=== PATIENT | male | born 1945 | race Caucasian/White ===

== ENCOUNTER 2020-06-03 12:13 | Inpatient (IN) | payer OTHER, MEDICARE, SELFPAY ==
[~2020-06-03] VITALS: Ht 188 cm; Wt 131.5 kg
[~2020-06-03 12:13] MED LIST: ACET325T53 PO; CHOL50004 PO; FURO-149 PO; HYDR-1189 PO; HYT1 GT; LOSA100T3 PO; METO-442 PO; METO2.5T6 PO; NITR1PAT76 TD; OMEP20CA15 PO; SSREG SUBCUT; ZOLP5TAB2 PO
[2020-06-03 12:15] VITALS: BP_SYST 130
--- NOTE | 2020-06-03 12:22 | NUR ---
Patient to ER bed 6 to gown for evaluation. Side rails up. Report given to Flakito MARIE.
--- NOTE | 2020-06-03 12:22 | NUR ---
LESLIE TO ASSUME CARE, PT CALM, ALERT, NO DISTRESS. COMMUNICATES CLEARLY IN FULL COMPLETE SENTENCES
--- NOTE | 2020-06-03 12:40 | NUR ---
DR HERNANDEZ IN TO ASSESS
[2020-06-03 12:47] LABS: BASOPHILS # (AUTO) 0.1 K/uL (0.0-0.2); BASOPHILS % (AUTO) 1.1 % (0.0-2.0); EOSINOPHILS # (AUTO) 0.1 K/uL (0.0-0.4); EOSINOPHILS % (AUTO) 2.9 % (0.0-4.0); HEMOGLOBIN 9.4 g/dL (14.0-18.0); MEAN CORPUSCULAR HEMOGLOBIN 35 pg (27-31); MEAN CORPUSCULAR HGB CONC 34 % (32-36); MEAN CORPUSCULAR VOLUME 106 fL (79.0-98.0); MONOCYTES # (AUTO) 0.4 K/uL (0.0-1.0); MONOCYTES % (AUTO) 8.8 % (1.7-9.3); NEUTROPHILS # (AUTO) 3.2 K/uL (1.8-7.7); NEUTROPHILS % (AUTO) 67.2 % (40.0-70.0); PLATELET COUNT (AUTO) 95 K/uL (130-430); RED BLOOD CELL COUNT(AUTO) 2.64 MIL/uL (4.2-6.2); RED CELL DISTRIBUTION WIDTH 15.2 % (9.0-15.0); WHITE BLOOD COUNT (AUTO) 4.7 K/uL (4.8-10.8)
[2020-06-03 12:59] LABS: ANION GAP 8 (5-15); CHLORIDE 97 mmol/L (98-107); CREATININE 4.49 mg/dL (0.55-1.30); GLUCOSE 113 mg/dL (70-99); SODIUM SERUM 138 mmol/L (136-145); UREA NITROGEN, BLOOD 18 mg/dL (8-21)
--- NOTE | 2020-06-03 13:00 | NUR ---
LABS, CXR COMPLETED, NO DISTRESS, RESP UNLABORED, IV HL 18 [address] AC
[2020-06-03 13:06] LABS: ALANINE AMINOTRANSFERASE 21 U/L (12-78); ALBUMIN 3.4 g/dL (3.4-4.8); ASPARTATE AMINOTRANSFERASE 20 U/L (10-37)
--- NOTE | 2020-06-03 13:25 | NUR ---
WOUND CARE TO RT TOE, IRRIGATED AND DRSG APPLIED
--- NOTE | 2020-06-03 14:05 | NUR ---
MRSA and Covid swabs collected
--- NOTE | 2020-06-03 14:25 | NUR ---
SUTURE REPAIR BY DR HERNANDEZ
[2020-06-03] MEDS ORDERED: LIDOCAINE 1%, 20 ML MDV 20 ML ONE (14:34)
[2020-06-03] MEDS ORDERED: DIPH-TET-PERTUS Vaccine 0.5 ML VIAL (ADACEL) I.M. ONE ×2 (14:45→14:47)
[2020-06-03] MEDS ORDERED: BACITRACIN 1 GM OINT TP ONE (14:46)
--- NOTE | 2020-06-03 14:55 | NUR ---
Patient will be admitted to care of Dr. Hernandez. Admitted to tele unit tele. Will go to room 130. Belongings list completed. Complete and up to date summary report printed. SBAR report to be given at bedside with opportunity for questions. Bedside report to be given
[2020-06-03] MEDS ORDERED: APIX2.5T PO (14:57)
--- NOTE | 2020-06-03 15:18 | NUR ---
ADMISSION NOTE Received patient from ER via ca, received report from HORACE MARIE. Patient admitted with diagnosis of FREQUENT SYNCOPAL EPISODE. Patient oriented to hospital routine, call light, toileting and safety-patient verbalized understanding.
[2020-06-03 15:19] VITALS: BP_SYST 117
[2020-06-03] MEDS ORDERED: INSULIN REGULAR, HUMAN 100 UNITS/ML, 10 ML VIAL (humuLIN R) SUBCUT PRN (16:45)
--- NOTE | 2020-06-03 17:33 | NUR ---
P.T. NOTES P.T. EVAL COMPLETED; REFER TO EVAL FOR DETAILS; BP=67/35 (SUPINE), 82/56 (SITTING), 82/49 (STANDING); RU=320, O2 SAT ROOM AIR=96%
--- NOTE | 2020-06-03 19:15 | NUR ---
OPENING NOTE BEDSIDE REPORT RECEIVED FROM DAYSHIFT NURSE. PATIENT RECEIVED LYING IN BED, ASLEEP, NO S/S OF ACUTE DISTRESS NOTED. BREATHING IS EVEN AND UNLABORED. CALL LIGHT WITH PATIENT. BED ALARM ON. BED IS LOCKED AND AT LOWEST POSITION. WILL CONTINUE TO MONITOR.
[2020-06-03 20:00] VITALS: BP_SYST 100
--- NOTE | 2020-06-03 20:00 | NUR ---
CONSENT FOR INFORMATION/HIPPA PATIENT VERBALIZED THAT IT IS OK TO SHARE HIS INFORMATION TO HIS EX- SANAM RICHTER AND HIS SON SAUL CLIFTON.
[2020-06-03] MEDS: ACETAMINOPHEN 325 MG TABLET PO PRN (20:22)
[2020-06-03] MEDS: APIXABAN 2.5 MG TABLET PO SCH (20:22)
--- NOTE | 2020-06-03 21:00 | NUR ---
ROUNDS PATIENT IN BED, ASLEEP AT THIS TIME. NO SIGNS OF DISCOMFORT. CHEST RISE AND FALL EVEN BILATERALLY. CALL LIGHT WITH PATIENT. BED ALARM ON. WILL CONTINUE TO MONITOR.
--- NOTE | 2020-06-03 23:00 | NUR ---
ROUNDS/REPOSITIONED PATIENT AWAKE, WATCHING TV, NO S/S OF ACUTE DISTRESS NOTED. BREATHING EVEN AND UNLABORED. REPOSITIONED AT THIS TIME, PATIENT VERBALIZED THAT HES COMFORTABLE. ALL NEEDS MET. CALL LIGHT WITH PATIENT. BED ALARM ON. WILL CONTINUE TO MONITOR.
[2020-06-04] VITALS: BP_SYST 112
--- NOTE | 2020-06-04 01:00 | NUR ---
ROUNDS PATIENT IN BED, SLEEPING, NO SIGNS OF DISCOMFORT. CHEST RISE AND FALL EVEN BILATERALLY. BED ALARM ON. WILL CONTINUE TO MONITOR.
--- NOTE | 2020-06-04 02:47 | NUR ---
SIT UP/LAY DOWN/REPOSITION PATIENT WOKE UP WANTED TO SIT UP FOR A BIT AT SIDE OF BED, CALL LIGHT WITH PATIENT. PATIENT CALLED WHEN HE WAS READY TO LAY DOWN, ASSISTED BY RN. ALL NEEDS MET AT THIS TIME. CALL LIGHT WITH PATIENT. BED ALARM ON. WILL CONTINUE TO MONITOR.
--- NOTE | 2020-06-04 05:00 | NUR ---
ROUNDS PATIENT IN BED, SLEEPING COMFORTABLY. NO SIGNS OF DISCOMFORT. CHEST RISE AND FALL EVEN BILATERALLY. CALL LIGHT WITH PATIENT. BED ALARM ON. WILL CONTINUE TO MONITOR.
--- NOTE | 2020-06-04 06:14 | NUR ---
CLOSING NOTE PATIENT IN BED, AWAKE, AOX4, NO S/S OF ACUTE DISTRESS NOTED. BREATHING EVEN AND UNLABORED. HOB RAISED. PATIENT DENIES PAIN OR SOB. SKIN WARM AND DRY TO TOUCH, NO S/S OF HYPOGLYCEMIA NOTE. IV SITE PATENT, NO SIGNS OF INFILTRATION OR INFECTION NOTED. ALL NEEDS MET THROUGHOUT SHIFT. FALL AND SAFETY PRECAUTIONS MAINTAINED THROUGHOUT SHIFT. WILL CONTINUE TO MONITOR UNTIL PATIENT CARE IS ENDORSED TO ONCOMING DAYSHIFT NURSE.
[2020-06-04] MEDS: APIXABAN 2.5 MG TABLET PO SCH ×2 (08:29→20:49)
[2020-06-04 08:30] VITALS: BP_SYST 92
--- NOTE | 2020-06-04 08:30 | NUR ---
opening notes, received pt in bed, pt is aaox4, denies pain, no sob, no fever, vitals checked bp is a little bit low on the lower 90's, pt stated he is always dizzy when asked if he has any dizziness. pt given am meds. encouraged pt to call for assist and any concerns. call light in reach. bed in low position. will cont to monitor.
[2020-06-04] MEDS: ACETAMINOPHEN 325 MG TABLET PO PRN ×2 (09:56→20:48)
--- NOTE | 2020-06-04 09:59 | NUR ---
Nutrition Update Zhen Scale 18 noted. Pt admitted for syncopal episode, frequent. Diet: [facility] BMI: 37.2 kg/m2 RD to follow per nutrition care standards.
[2020-06-04 11:29] VITALS: BP_SYST 107
--- NOTE | 2020-06-04 13:47 | NUR ---
Case mgt--Met w/pt at bedside--pt very [place]-Pt says he lives alone in 2 story home but has hospital bed at home downstairs due to recent falls. Has FWW & W/C. Sons live nearby. He said he was at [facility] several years ago after his back surgery. I explained there is PT eval order, and we will f/u for dc planning for home vs SNF vs Acute Rehab.Pt feeds/dresses himself-limited ambulation--Will need f/u for dc planning
[2020-06-04 16:00] VITALS: BP_SYST 94
[2020-06-04] MEDS ORDERED: LIDOCAINE VISCOUS 2%, 15 ML UDC MM PRN (17:45)
--- NOTE | 2020-06-04 19:30 | NUR ---
INITIAL NOTE: Received report from dayshift RN. Patient is in bed, watching TV. No signs of acute distress. Even, nonlabored breathing on room air. IV site is patent, intact, and saline locked. Bed is locked at lowest position. Side rails up. Call light is with patient. Safety and fall precautions in place. Will continue with plan of care.
[2020-06-04 20:00] VITALS: BP_SYST 106
--- NOTE | 2020-06-04 20:48 | NUR ---
PAIN: Patient complained of mild pain in the fingers. Tylenol 650mg PO indicated. Educated patient on indications and side effect of medication. Patient verbalized understanding. Medication administered per MD order. Patient tolerated well. Will continue to monitor and reassess.
--- NOTE | 2020-06-04 22:00 | NUR ---
Rounds: Patient in bed, resting. No acute distress. Breathing is even, nonlabored on room air. Call light is with patient. Safety and fall precautions in place. Will continue to monitor.
[2020-06-05] VITALS: BP_SYST 95
--- NOTE | 2020-06-05 00:10 | NUR ---
Rounds: Patient in bed, resting. No s/s acute distress. Respirations are even, nonlabored on room air. Call light is with patient. Safety and fall precautions in place. Will continue to monitor.
--- NOTE | 2020-06-05 02:30 | NUR ---
Rounds: Patient is sleeping in bed. No acute distress. Even, nonlabored respirations on room air. Call light is with patient. Safety and fall precaution. Will continue monitoring.
--- NOTE | 2020-06-05 04:30 | NUR ---
Round: Patient is sleeping in bed. No s/s of acute distress. Even and unlabored respirations. Call light is with patient. Safety and fall precautions in place. Will continue to monitor.
--- NOTE | 2020-06-05 06:14 | NUR ---
CLOSING NOTE: Patient is sitting in chair by bedside. No signs of acute distress. Even, nonlabored breathing on room air. IV site is patent, intact, and saline locked. Bed is locked at lowest position. Side rails up x2. Call light is with patient. Safety and fall precautions in place. Will endorse care to dayshift RN. Addendum: 06/05/20 at 0618 by Estrellita Fofana RN All needs met.
[2020-06-05] MEDS: ACETAMINOPHEN 325 MG TABLET PO PRN (06:35)
--- NOTE | 2020-06-05 07:20 | NUR ---
Report received from FRANK Haro for continuation of care.
[2020-06-05 08:00] VITALS: BP_SYST 108
[2020-06-05] MEDS: APIXABAN 2.5 MG TABLET PO SCH (08:04)
--- NOTE | 2020-06-05 10:07 | NUR ---
Patient is resting in bedside chair and resting comfortably.
[2020-06-05 11:35] VITALS: BP_SYST 118
--- NOTE | 2020-06-05 12:07 | NUR ---
Patient is sitting in bedside chair eating lunch. He is very happy with his meal.
[2020-06-05 13:52] VITALS: BP_SYST 114
--- NOTE | 2020-06-05 14:32 | NUR ---
CM Note: Dr Hernandez discharged pt today, ordered to f/u with HH. I called pt's son Higinio # [phone] to inform HH arrangement with [facility] for continued PT and safety evaluation. [facility] will call for visiting appointment. >> The pt lives alone in his own home, Higinio lives 2 minutes away and will be staying with the pt until his step mother, Faiza arrives. Higinio assured that there will be someone with the pt at all time since the pt is high risk for fall. Faiza is currently from the pt. but still involves in pt care. Per Higinio, there will be a family meeting to determine the transfer of care from Faiza and possibly to him and will get the POA signed for further use. CM will f/u HH set up in am.
--- NOTE | 2020-06-06 08:55 | NUR ---
[facility]: Ren confirmed accepting the referral and will call pt today to schedule the nurse visiting services.
--- NOTE | 2020-06-09 13:54 | NUR ---
Discharge Follow Up Phone Call Kitchen Steward/Stewardess phoned patient, , on 06/07/20 and 06/09/20 but the message stated that the patient was unavailable. I phoned patient's son, Higinio [phone], today. Patient is doing better. [facility] had been set up for patient, but had not made contact. Aruna at [facility] recommended [facility]. [facility] later stated that a nurse would call today to set up an appointment to see patient tomorrow, 06/10/20. However, due to [facility]'s delay in service, Higinio has decided to go with [facility] who will see patient tomorrow, 06/10/20. Discussed with Higinio that patient needs to make a follow up appointment with his PCP. Higinio will check and assure the appointment is made. No other questions or concerns. Higinio will call if any follow up needed.
== END 2020-06-05 14:25 | disposition home health service (06) | DRG 312 ==
LOC: SED 12:13 → STU 14:27
PROVIDERS: ADMIT Family Medicine; ATTEND Family Medicine
DX: R55 Syncope and collapse (principal); N18.6 End stage renal disease; I12.0 Hypertensive chronic kidney disease with stage 5 chronic kidney disease or end stage renal disease; D64.9 Anemia, unspecified; E11.22 Type 2 diabetes mellitus with diabetic chronic kidney disease; M19.90 Unspecified osteoarthritis, unspecified site; N40.0 Benign prostatic hyperplasia without lower urinary tract symptoms; Z20.828 Contact with and (suspected) exposure to other viral communicable diseases; R29.6 Repeated falls; S91.119A Laceration without foreign body of unspecified toe without damage to nail, initial encounter; X58.XXXA Exposure to other specified factors, initial encounter; Y93.89 Activity, other specified; Y92.89 Other specified places as the place of occurrence of the external cause; Z79.899 Other long term (current) drug therapy; Y99.8 Other external cause status
CPT/HCPCS: 36415; 71045; 80053; 82550-TC; 82962; 83880; 84484; 85025; 87081; 90715; 93005; 97112-GP; 99285; G0378; J1815; J2001

== ENCOUNTER 2020-09-19 18:08 | Emergency (ER) | payer OTHER, MEDICARE, SELFPAY ==
[~2020-09-19] VITALS: Ht 188 cm; Wt 121.6 kg
[~2020-09-19 18:08] MED LIST changes: +APIX2.5T PO
[2020-09-19 18:28] VITALS: BP_SYST 111
[2020-09-19] MEDS ORDERED: BACITRACIN 1 GM OINT TP ONE (19:30)
[2020-09-19] MEDS ORDERED: LIDOCAINE/EPI 1% 1:100000 20 ML VIAL INJ ONE (19:30)
[2020-09-19 20:32] VITALS: BP_SYST 102
== END 2020-09-19 20:32 | disposition home or self-care (01) ==
LOC: SED 18:08
DX: S81.811A Laceration without foreign body, right lower leg, initial encounter (principal); I48.91 Unspecified atrial fibrillation; I12.9 Hypertensive chronic kidney disease with stage 1 through stage 4 chronic kidney disease, or unspecified chronic kidney disease; E11.22 Type 2 diabetes mellitus with diabetic chronic kidney disease; N18.9 Chronic kidney disease, unspecified; Z99.2 Dependence on renal dialysis; Z79.899 Other long term (current) drug therapy; W45.8XXA Other foreign body or object entering through skin, initial encounter; Y93.89 Activity, other specified; Y92.89 Other specified places as the place of occurrence of the external cause; Y99.8 Other external cause status
CPT/HCPCS: 99282

== ENCOUNTER 2020-09-24 16:31 | Emergency (ER) | payer OTHER, MEDICARE ==
[~2020-09-24] VITALS: Ht 185.4 cm; Wt 129.3 kg
[2020-09-24 16:45] VITALS: BP_SYST 107
[2020-09-24] MEDS ORDERED: ceFAZolin SODIUM 1 GM VIAL IM ONE (16:45)
[2020-09-24] MEDS ORDERED: LIDOCAINE 1%, 20 ML MDV 20 ML ONE (16:50)
[2020-09-24] MEDS ORDERED: CEPH-568 PO (17:13)
[2020-09-24 17:41] VITALS: BP_SYST 108
== END 2020-09-24 17:47 | disposition home or self-care (01) ==
LOC: SED 16:31
DX: L03.113 Cellulitis of right upper limb (principal); I25.10 Atherosclerotic heart disease of native coronary artery without angina pectoris; I10 Essential (primary) hypertension; E11.9 Type 2 diabetes mellitus without complications; I48.91 Unspecified atrial fibrillation; Z79.899 Other long term (current) drug therapy
CPT/HCPCS: 96372; 99283; J0690; J2001

== ENCOUNTER 2020-10-10 15:58 | Emergency (ER) | payer OTHER, MEDICARE ==
[~2020-10-10] VITALS: Ht 188 cm; Wt 131.5 kg
[~2020-10-10 15:58] MED LIST changes: +CEPH-568 PO; -HYDR-1189 PO; +HYDR-3919 PO
[2020-10-10 16:04] VITALS: BP_SYST 114
--- NOTE | 2020-10-10 16:04 | NUR ---
Patient to ER bed 5 to gown for evaluation. Side rails up.
--- NOTE | 2020-10-10 16:04 | NUR ---
Pt came to ER for hypotension during dialysis. Pt presents in ER 114/33, no distress noted, VSS, no complaints at this time. Pt resting in [facility] comfortably awaiting MD randolph
--- NOTE | 2020-10-10 16:15 | NUR ---
ER at bedside examining patient.
[2020-10-10 16:41] LABS: BASOPHILS % (AUTO) 0.5 % (0.0-2.0); EOSINOPHILS # (AUTO) 0.1 K/uL (0.0-0.4); EOSINOPHILS % (AUTO) 1.6 % (0.0-4.0); HEMATOCRIT 25.8 % (36-54); HEMOGLOBIN 8.4 g/dL (14.0-18.0); LYMPHOCYTES # (AUTO) 0.5 K/uL (1.0-5.5); LYMPHOCYTES % (AUTO) 6.1 % (20.5-51.5); MEAN CORPUSCULAR HEMOGLOBIN 36 pg (27-31); MEAN CORPUSCULAR HGB CONC 33 % (32-36); MEAN CORPUSCULAR VOLUME 110 fL (79.0-98.0); MONOCYTES # (AUTO) 0.7 K/uL (0.0-1.0); MONOCYTES % (AUTO) 8.1 % (1.7-9.3); NEUTROPHILS # (AUTO) 7.2 K/uL (1.8-7.7); NEUTROPHILS % (AUTO) 83.7 % (40.0-70.0); PLATELET COUNT (AUTO) 72 K/uL (130-430); RED BLOOD CELL COUNT(AUTO) 2.35 MIL/uL (4.2-6.2); RED CELL DISTRIBUTION WIDTH 19.4 % (9.0-15.0); WHITE BLOOD COUNT (AUTO) 8.6 K/uL (4.8-10.8)
[2020-10-10 16:59] LABS: INR 1.2 (0.80-1.20); PROTHROMBIN TIME 12.6 SECS (9.5-12.5)
[2020-10-10 17:01] LABS: ALANINE AMINOTRANSFERASE 15 U/L (12-78); ALBUMIN 2.5 g/dL (3.4-4.8); ANION GAP 16 (5-15); ASPARTATE AMINOTRANSFERASE 34 U/L (10-37); CALCIUM 8.5 mg/dL (8.4-11.0); CHLORIDE 94 mmol/L (98-107); GLUCOSE 139 mg/dL (70-99); SODIUM SERUM 132 mmol/L (136-145); TOTAL BILIRUBIN 1.1 mg/dL (0.0-1.0); UREA NITROGEN, BLOOD 51 mg/dL (8-21)
[2020-10-10 17:09] LABS: CREATININE 8.03 mg/dL (0.55-1.30)
--- NOTE | 2020-10-10 19:01 | NUR ---
Pt resting in [facility] at this time no distress noted, VSS
--- NOTE | 2020-10-10 19:15 | NUR ---
RECEIVED REPORT FROM FRANK HOLLAND FOR CONTINUATION OF CARE.
--- NOTE | 2020-10-10 19:19 | NUR ---
Patient resting quietly. No acute distress noted. Breathing even and unlabored. Vital signs within normal range.
--- NOTE | 2020-10-10 20:09 | NUR ---
SPOKE WITH SON, SAUL, WHO INFORMED US PT IS CURRENTLY STAYING AT [facility] IN [place]. SON UPDATED ON CARE OF PATIENT.
--- NOTE | 2020-10-10 20:51 | NUR ---
REPORT GIVEN TO FRANK GAN AT [facility] WHERE THE PT RESIDES.
--- NOTE | 2020-10-10 20:56 | NUR ---
ETA FOR TRANSPORT IS 1 HR WITH [facility].
--- NOTE | 2020-10-10 21:15 | NUR ---
Patient to be transferred to [facility]. Copy of nursing notes, lab reports, EKG, Physicians Orders and X-rays to be sent with patient. Report called to FRANK GAN at receiving facility. [facility] has been called for transfer. ETA is 2200.
[2020-10-10 21:29] VITALS: BP_SYST 126
--- NOTE | 2020-10-10 21:29 | NUR ---
Patient given written and verbal discharge instructions and verbalizes understanding. REPORT GIVEN TO EMS CREW PRIOR TO TRANSPORT. ER MD discussed with patient the results and treatment provided. Patient in stable condition. ID arm band removed. NO Rx given. Patient educated on pain management and to follow up with PMD. Pain Scale 0/10. Opportunity for questions provided and answered. Medication side effect fact sheet provided.
--- NOTE | 2020-10-10 21:29 | NUR ---
REPORT GIVEN TO [facility] PRIOR TO TRANSPORT TO [facility]
== END 2020-10-10 21:28 | disposition home or self-care (01) ==
LOC: SED 15:58
DX: I10 Essential (primary) hypertension (principal)
CPT/HCPCS: 36415; 71045; 80053; 83605; 84484; 85025; 85610-TC; 85730-TC; 93005; 99285